=== PATIENT | male | born 1940 | race Caucasian/White ===

== ENCOUNTER → 2017-03-05 | Outpatient (CLI) | payer OTHER ==
[~2017-03-05] MED LIST: DUTA0.5C PO; LEVO150T5 PO; LISI-170 PO; MULT-115 PO; OMEP-110 PO; OXYC-302 PO; TEMA15CA PO
[2017-03-05 15:19] LABS: HEMATOCRIT 50.6 % (39.2-51.8); WHITE BLOOD COUNT 6.3 x10^3/uL (3.4-10)
[2017-03-05 15:29] LABS: ASPARTATE AMINO TRANSFERASE 14 U/L (15-37); BLOOD UREA NITROGEN 15 mg/dL (7-18)
== END | disposition home or self-care (01) ==
LOC: STAR 14:10
PROVIDERS: ATTEND Urology
DX: Z01.818 Encounter for other preprocedural examination (principal); N40.0 Benign prostatic hyperplasia without lower urinary tract symptoms; N32.0 Bladder-neck obstruction; R79.1 Abnormal coagulation profile
CPT/HCPCS: 36415; 80053; 81001; 85025; 85610; 85730; 87086

== ENCOUNTER → 2017-03-07 | Outpatient (CLI) | payer OTHER ==
[~2017-03-07] MED LIST changes: +GADOBUTROL 10 MMOL/10 ML PFS ONE
== END | disposition home or self-care (01) ==
LOC: CFH 12:49
PROVIDERS: ATTEND Psychiatry & Neurology Neurology
DX: H05.20 Unspecified exophthalmos (principal); H53.2 Diplopia
CPT/HCPCS: 70480; 70543; A9585

== ENCOUNTER 2017-03-19 06:55 | Day surgery (SDC) | payer OTHER ==
[~2017-03-19] VITALS: Ht 175.3 cm; Wt 88.2 kg
[~2017-03-19 06:55] MED LIST changes: -GADOBUTROL 10 MMOL/10 ML PFS ONE
[2017-03-19] MEDS ORDERED: LACTATED RINGERS 1,000 ML IV SCH (07:44)
[2017-03-19 07:50] VITALS: BP 146/86
[2017-03-19] MEDS ORDERED: FENTANYL PF 100 MCG/2ML ONE (08:28)
[2017-03-19] MEDS ORDERED: PROPOFOL 10 MG/ML, 20ML ONE (08:36)
[2017-03-19] MEDS ORDERED: GLYCOPYRROLATE 0.2MG/1ML, 5ML ONE (08:36)
[2017-03-19] MEDS ORDERED: ONDANSETRON 2MG/ML, 2ML ONE (08:36)
[2017-03-19] MEDS ORDERED: METOPROLOL 1 MG/ML, 5ML ONE (08:36)
[2017-03-19] MEDS ORDERED: CEFAZOLIN 1,000 MG ONE (08:36)
[2017-03-19] MEDS ORDERED: ROCURONIUM 10 MG/ML ONE (08:36)
[2017-03-19] MEDS ORDERED: DEXAMETHASONE 4 MG/ML, 1ML ONE (08:36)
[2017-03-19] MEDS ORDERED: LABETALOL 5MG/ML, 20ML IV PRN (09:00)
[2017-03-19] MEDS ORDERED: ONDANSETRON 2MG/ML, 2ML IVPush PRN (09:00)
[2017-03-19] MEDS ORDERED: MIDAZOLAM 1 MG/ML, 2ML IV PRN (09:00)
[2017-03-19] MEDS ORDERED: FENTANYL PF 100 MCG/2ML IV PRN (09:00)
[2017-03-19] MEDS ORDERED: hydrALAzine 20 MG/ML, 1ML IV PRN (09:00)
[2017-03-19] MEDS ORDERED: HYDROmorphone 1 MG/ML, 1ML IV PRN (09:00)
[2017-03-19] MEDS ORDERED: OXYcodone 5 MG/5 ML ORAL.SOL UDC PO PRN (09:00)
[2017-03-19] MEDS ORDERED: PROMETHAZINE 25 MG/ML, 1ML IV PRN (09:00)
[2017-03-19] MEDS ORDERED: OXYcodone 5 MG/5 ML ORAL.SOL UDC ONE (09:14)
== END 2017-03-19 16:30 ==
LOC: OUT 06:55
PROVIDERS: ATTEND Urology
DX: N32.0 Bladder-neck obstruction (principal); I10 Essential (primary) hypertension; K21.9 Gastro-esophageal reflux disease without esophagitis; N40.0 Benign prostatic hyperplasia without lower urinary tract symptoms; Z98.890 Other specified postprocedural states
CPT/HCPCS: 52640; J0690; J1100; J2405; J2704; J3010; J7120; J3490

== ENCOUNTER → 2018-06-25 | Outpatient (CLI) | payer MEDICARE | END | disposition home or self-care (01) | LOC: CFH 13:09 | PROVIDERS: ATTEND Internal Medicine | DX: M48.02 Spinal stenosis, cervical region (principal); R59.1 Generalized enlarged lymph nodes; E03.9 Hypothyroidism, unspecified | CPT/HCPCS: 72050; 76536 ==

== ENCOUNTER 2020-08-02 13:51 | Outpatient (CLI) | payer MEDICARE ==
[~2020-08-02 13:51] MED LIST changes: -OXYC-302 PO; +OXYC1TAB14 PO
== END 2020-08-02 23:59 | disposition home or self-care (01) ==
LOC: STAR 13:51
PROVIDERS: ATTEND Urology
DX: Z01.812 Encounter for preprocedural laboratory examination (principal); Z20.822 Contact with and (suspected) exposure to COVID-19; N40.1 Benign prostatic hyperplasia with lower urinary tract symptoms; I25.2 Old myocardial infarction
CPT/HCPCS: 87635; 93005

== ENCOUNTER 2020-08-06 14:17 | Day surgery (SDC) | payer MEDICARE ==
[~2020-08-06] VITALS: Ht 175.3 cm; Wt 91.0 kg
[2020-08-06 14:44] VITALS: BP 162/80
[2020-08-06] MEDS ORDERED: CHLORHEXIDINE 15 ML UDC MM ONE (15:00)
[2020-08-06] MEDS ORDERED: LACTATED RINGERS 1,000 ML IV SCH (15:00)
[2020-08-06] MEDS ORDERED: HYDROmorphone 1 MG/ML, 1ML INJ IVPush PRN (15:30)
[2020-08-06] MEDS ORDERED: ONDANSETRON 2MG/ML, 2ML IVPush PRN (15:30)
[2020-08-06] MEDS ORDERED: FENTANYL PF 100 MCG/2ML IV PRN (15:30)
[2020-08-06] MEDS ORDERED: PROMETHAZINE 25 MG/ML, 1ML IVPush PRN (15:30)
[2020-08-06] MEDS ORDERED: MEPERIDINE/PF 25MG/0.5ML IVPush PRN (15:30)
[2020-08-06] MEDS ORDERED: FENTANYL PF 100 MCG/2ML ONE (15:52)
[2020-08-06] MEDS ORDERED: PROPOFOL 10 MG/ML, 20ML ONE (15:57)
[2020-08-06] MEDS ORDERED: ONDANSETRON 2MG/ML, 2ML ONE (15:57)
[2020-08-06] MEDS ORDERED: CEFAZOLIN 1,000 MG ONE (15:57)
[2020-08-06] MEDS ORDERED: DEXAMETHASONE 4 MG/ML, 1ML ONE (15:57)
== END 2020-08-06 18:30 | disposition home or self-care (01) ==
LOC: OR 14:17
PROVIDERS: ATTEND Urology
DX: N40.1 Benign prostatic hyperplasia with lower urinary tract symptoms (principal); N13.8 Other obstructive and reflux uropathy; N32.81 Overactive bladder; R39.15 Urgency of urination; K21.9 Gastro-esophageal reflux disease without esophagitis; E03.9 Hypothyroidism, unspecified; I10 Essential (primary) hypertension; Z79.899 Other long term (current) drug therapy; Z98.52 Vasectomy status; Z98.890 Other specified postprocedural states; Z72.89 Other problems related to lifestyle
CPT/HCPCS: 52630; 88305; J0690; J1100; J2405; J2704; J3010; J7120